=== PATIENT | female | born 1955 | race Hispanic/Latino ===

== ENCOUNTER → 2022-03-14 07:52 | Outpatient (CLI) | payer OTHER, SELFPAY ==
--- NOTE | 2022-03-14 07:54 | DI.NM.S_ITS ---
PROCEDURE: [place] BONE SCAN WHOLE BODY RADIOPHARMACEUTICAL: 19.8 mCi Tc-99m MDP IV. INDICATIONS: Secondary malignant neoplasm of bone TECHNIQUE: Delayed whole-body scintigrams were obtained approximately 3-4 hours after intravenous injection of radiotracer. Anterior and posterior views were acquired from vertex to feet. Additional left and right oblique views of the thorax were obtained. COMPARISON: None. FINDINGS: Linear increased radiotracer uptake involving the posterior posterior lateral left 7th rib highly suspicious for metastatic disease. No additional areas of suspicious radiotracer uptake. No areas of photopenia identified in the osseous skeleton. Radiotracer uptake identified in the shoulders bilaterally, the knees bilaterally, ankles bilaterally mid feet compatible with osteoarthritis. No abnormal soft tissue uptake. Activity in the kidneys is normal and symmetric. IMPRESSION: Probable osseous metastatic disease involving the left 7th rib. Dictated by: Lucy Crain MD, PhD on 03/14/2022 at 11:53 Approved by: Lucy Crain MD, PhD on 03/14/2022 at 11:57
== END ==
PROVIDERS: PCP Internal Medicine; Referring Provider Internal Medicine Medical Oncology; Visit Provider Internal Medicine Medical Oncology
DX: C79.51 Secondary malignant neoplasm of bone (principal); C50.811 Malignant neoplasm of overlapping sites of right female breast; Z17.0 Estrogen receptor positive status [ER+]
CPT/HCPCS: 78306; A9503

== ENCOUNTER → 2022-05-19 09:46 | Outpatient (CLI) | payer OTHER, SELFPAY | PROVIDERS: PCP Internal Medicine; Referring Provider Internal Medicine Medical Oncology; Visit Provider Internal Medicine Medical Oncology | DX: C79.51 Secondary malignant neoplasm of bone (principal); C80.1 Malignant (primary) neoplasm, unspecified; Z53.20 Procedure and treatment not carried out because of patient's decision for unspecified reasons ==

== ENCOUNTER → 2022-07-25 12:44 | Outpatient (CLI) | payer OTHER, SELFPAY ==
--- NOTE | 2022-07-25 12:46 | DI.CT.S_ITS ---
PROCEDURE: CT CHEST ABD PEL W CON INDICATIONS: Mastodynia TECHNIQUE: After the administration of oral and intravenous contrast, axial sections acquired from the supraclavicular neck to the pubic symphysis. Coronal and sagittal reformats were performed. For radiation dose reduction, the following was used: automated exposure control, adjustment of mA and/or kV according to patient size. COMPARISON:[place], [place], [place] BONE SCAN WHOLE BODY, 03/14/2022, 10:58. FINDINGS: Image quality: Excellent. CHEST: Lower Neck: No enlarged lymph nodes. Thyroid: Within normal limits. Axillae: No enlarged lymph nodes. Chest Wall: There are postsurgical changes in the left breast and left axilla. Lungs and Airways: No consolidation or suspicious nodules. Pleura: No pneumothorax or pleural effusions. Heart: Heart size is normal. No pericardial effusion. Mild coronary artery calcification. Thoracic Vessels: The aorta and pulmonary arteries demonstrate normal size. Mediastinum and Patsy: No enlarged lymph nodes. Esophagus: No wall thickening. Small hiatal hernia. ABDOMEN: Liver: There is a 3.6 x 3.9 cm cyst in segment 2. A tiny 0.4 cm hepatic hypodensity in segment 4 is indeterminate, but also likely a cyst. Mild hepatic steatosis. Gallbladder: Unremarkable. Biliary ducts: Unremarkable. Pancreas: Unremarkable. Spleen: Unremarkable. Adrenal Glands: Unremarkable. Kidneys and Ureters: Normal in size and enhancement. There are a few non obstructive right renal calculi. Stomach and Bowel: Stomach, small bowel loops, and colon are unremarkable. Peritoneum: No abnormal intraperitoneal fluid. No free air. Ventral Wall: No hernia. Abdominal Nodes: No retroperitoneal or mesenteric adenopathy by size criteria. Vessels: Aorta and inferior vena cava are normal in size. PELVIS: Pelvic Organs: Unremarkable. Bladder: Unremarkable. Pelvic Nodes: No enlarged lymph nodes. Miscellaneous: No inguinal hernias are seen. Bones: There are sclerotic bone lesions involving T6, T8, T9, L1, L3, L4, L5, S1, sternum, the medial head of the left clavicle, the left 2nd, 3rd, 6 and 7th ribs and the right 6th rib, consistent with osseous metastasis. There may be old healed left rib fractures. IMPRESSION: 1. There are multiple sclerotic osseous lesions as described, consistent with osseous metastases. 2. Postsurgical changes in the left breast and left axilla. No recurrent mass in left breast. A cause for breast pain is not identified. Recommend correlations with mammogram or breast ultrasound if clinically indicated. 3. No enlarged lymph nodes in thorax, abdomen or pelvis. 4. A large cyst in segment 2 of liver. A tiny hepatic hypodensity in segment 4 is also likely a cyst but too small to further characterize, therefore, considered indeterminate. 5. Mild hepatic steatosis. 6. Non obstructive right renal calculi. Dictated by: Augusto Lopez M.D. on 07/25/2022 at 18:30 Approved by: Augusto Lopez M.D. on 07/25/2022 at 18:43
== END ==
PROVIDERS: PCP Internal Medicine; Referring Provider Surgery; Visit Provider Surgery
DX: N64.4 Mastodynia (principal); K76.89 Other specified diseases of liver; K76.0 Fatty (change of) liver, not elsewhere classified; N20.0 Calculus of kidney; M89.9 Disorder of bone, unspecified
CPT/HCPCS: 71260; 74177; Q9967

== ENCOUNTER → 2022-09-01 09:18 | Outpatient (CLI) | payer OTHER, SELFPAY ==
[2022-09-01 11:21] LABS: COVID19 -Nasal RAPID Negative (Negative)
== END ==
PROVIDERS: PCP Internal Medicine; Visit Provider Surgery
DX: Z20.822 Contact with and (suspected) exposure to COVID-19 (principal); Z01.812 Encounter for preprocedural laboratory examination
CPT/HCPCS: 87635; C9803

== ENCOUNTER 2022-09-02 06:45 | Day surgery (SDC) | payer OTHER, SELFPAY ==
[2022-09-02] VITALS (17 sets, daily range): BP systolic 129–188; BP diastolic 71–116; PULSE 62–87; RESP 12–25; TEMP 35.7–36.3; O2SAT 95–99; BMI 29.9
--- NOTE | 2022-09-02 | PATH_ITS ---
[facility] Accession Number: [id number] No. of containers..03 Tissue . 01 Material submitted: . PART A: abdomen - LEFT TRAM FLAP PART B: breast - LEFT INFERIOR BREAST TISSUE. Modifiers: left, inferior PART C: breast - RIGHT BREAST. Modifiers: right . 01 Diagnosis: A. Left TRAM Flap, Excision/Mastectomy: Skin with focal scar and dermal exogenous black pigment. Fibroadipose tissue with focal fat necrosis. Skeletal muscle with degenerative change/necrosis. Breast duct and lobules are not identified. Negative for significant atypia or malignancy. . B. Left Inferior Breast Tissue, Excision: Benign fibroadipose tissue with focal fat necrosis. 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 No definitive breast duct and lobules identified. Negative for significant atypia or malignancy. . C. Right Breast Tissue, Mastectomy: Skin with nipple areolar complex within normal limits. Breast parenchyma with fibrocystic change including apocrine metaplasia, microcystic duct dilatation, and usual ductal hyperplasia. Negative for atypia, carcinoma in situ, and malignancy. MRV 09/11/2022 1715 Local . 01 Electronically signed: Raimundo Resendiz MD, Pathologist NPI- [id number] . 01 Gross description: . A. Received: In formalin, labeled with the patient's name and left TRAM flap. Specimen: Unoriented left reconstructed mastectomy specimen with no muscle tissue identified (photographs taken). Weight: 533 grams. Measurement: 16.8 x 13.9 x 6.4 cm. Skin Ellipse: Present, 15.2 x 3.9 cm with nipple (1.1 cm diameter) and areolar complex (4.1 x 3.5 cm) significant for a circular indent possibly consistent with scar surrounding the nipple complex. Wire: Absent. Margins: No orientation is provided. The ellipse of skin is located eccentrically. The largest area of exposed adipose above the ellipse is arbitrarily designated anterior superior and is inked blue. The opposite anterior surface is designated anterior inferior and is inked green. The posterior deep surface is inked black. Sliced: From presumed medial to lateral into twenty 4 mm slices. Lesion: No lesions identified. Other: The cut surfaces are yellow lobulated adipose tissue with strands of white fibrous tissue occupying approximately 10% of the cut surface. No lesions or biopsy sites are identified. Fixation time: Removed 09/02/2022. Time not provided. Cold ischemic time cannot be calculated. Total fixation time is less than 72 hours. Glass Blower Helper sections are submitted as follows: A1: Nipple and areolar complex. A2-A3: Rep, upper inner quadrant. A4-A5: Rep, lower inner quadrant. A6-A7: Rep, upper outer quadrant. A8-A9: Rep, lower outer quadrant. . An additional community relations representative section of nipple, areolar complex, and circumferential indented area is submitted in cassette A10. ([id number]) . B. Received: In formalin labeled with the patient's name and left inferior breast tissue. Specimen: Multiple unoriented fragments of yellow fibroadipose tissue with no skin identified. Weight: 89 grams. Measurement: 10.5 x 8.6 x 2.0 cm in aggregate. Skin Ellipse: Absent. Wire: Absent. Margins: Due to the unoriented fragmented nature of the specimen, margins cannot be identified. Sliced: Into 3 mm slices. Lesions: A well-circumscribed daley nodule is identified, possibly consistent with lymph node candidate measuring 0.8 cm in greatest dimension. No additional lesions are identified. Other: The cut surfaces are yellow lobulated fibroadipose tissue with white fibrous tissue occupying approximately 10% of the cut surface. No lesions or biopsy sites are identified. Fixation time: Removed 09/02/2022. Time not provided. Cold ischemic time cannot be calculated. Total fixation time is less than 72 hours. Glass Blower Helper sections are submitted as follows: B1: Bisected lymph node candidate. B2-B5: Glass Blower Helper sections. Photographs taken. . C. Received: In formalin, labeled with the patient's name and right breast. Specimen: Unoriented right mastectomy specimen (photographs taken) with detached additional fragment of yellow fibroadipose tissue. Mastectomy: Weight: 355 grams. Measurement: 13.5 x 10.8 x 5.7 cm. Skin Ellipse: Present, 10.1 x 3.3 cm with nipple (0.9 cm diameter) and areolar complex (2.8 x 2.5 cm). Wire: Absent. Margins: No orientation provided. The ellipse of skin is located eccentrically. The largest area of exposed adipose above the ellipse is arbitrarily designated anterior superior and is inked blue. The opposite anterior surface is designated anterior inferior and is inked green. The posterior deep surface is inked black. Sliced: From presumed lateral to medial into seventeen 4 mm slices. Lesions: No lesions identified. Other: The cut surfaces are yellow lobulated fibroadipose tissue with dense fibrous tissue occupying approximately 20% of the cut surface. No lesions or biopsy sites are identified. Additional adipose fragment: Weight: 33 grams. Measurement: 18.8 x 5.2 x 1.6 cm. Skin Ellipse: Absent. Wire: Absent. Margins: No orientation provided. Margins cannot be identified. Sliced: Into 3 mm slices. Lesions: No lesions identified. Other: The cut surfaces are yellow lobulated fibroadipose tissue with white fibrous tissue occupying less than 10% of the cut surface. No lesions or biopsy sites are identified. Fixation time: Removed 09/02/2022. Time not provided. Cold ischemic time cannot be calculated. Total fixation time is less than 72 hours. Glass Blower Helper sections are submitted as follows: C1: Central nipple. C2-C3: Rep, upper outer quadrant. C4-C5: Rep, lower outer quadrant. C6-C7: Rep, upper inner quadrant. C8-C9: Rep, lower inner quadrant. C10-C11: Rep, additional fragment. ([id number]) /MRV 09/09/2022 0942 Local . 01 Pathologist provided ICD-10: N64.4 . 01 CPT . 417896, 099858, 108497 Specimen Comment: A courtesy copy of this report has been sent to [phone] Performed at: 01 [facility] [address] [place] [address], [place], [place] [id number] MD Kush Light MD Phone: [phone]
[2022-09-02] MEDS: LACTATED RINGERS 1,000 ML 42 ML IV (07:33)
--- NOTE | 2022-09-02 07:35 | SUR.OPER ---
Supine on padded OR bed, head on pillow, arms secured on padded arm boards at <90 degrees abduction, legs uncrossed, safety belt at thigh, tape over blanket over lower legs.
[2022-09-02] MEDS: SCOPOLAMINE 1 PATCH TOP (07:54)
--- NOTE | 2022-09-02 08:04 | PM.PREOP ---
Pre-operative Note COVID-19 COVID-19 status: Negative Result date/Date tested (Pos, Neg/Pending): 09/01/22 Interval Note History & Physical reviewed/Exam performed by Physician: Yes Changes to H&P: No ASA Class (for procedural sedation): II
[2022-09-02] MEDS: CEFAZOLIN 2 GM/100 ML PREMIX 100 ML IV (08:15)
[2022-09-02] MEDS: LIDOCAINE 1% 20 ML INJ (08:35)
[2022-09-02] MEDS: EPINEPHrine 1 MG/ML 0.15 MG IM (08:36)
[2022-09-02] MEDS: BUPIVACAINE 0.5% (PF) VIAL 30 ML INJ (08:37)
[2022-09-02] MEDS: SODIUM CHLORIDE 0.9% 1,000 ML 84 ML IV (09:09)
--- NOTE | 2022-09-02 11:18 | PM.OP.1 ---
Operative Date/Time/Diagnoses Date of procedure: 09/02/22 Time of procedure: 11:19 Pre-op diagnosis: Bilateral mastodynia Post-op diagnosis: same Procedure & Clinicians Procedure: Bilateral mastectomy Same procedure as scheduled: Yes Surgeon: Lazaro Erickson Anesthesia Type: General Operative Notes Procedure in detail: Preoperative antibiotics were given. The patient was brought to the operating room, placed on the table in the supine position and general anesthesia was induced via LMA. The arms were abducted on arm boards. Bilateral breasts and axilla were prepped and draped in the usual fashion. A time-out was performed. We started with the left breast. We made an elliptical skin incision encompassing the left areola and curving towards the axilla laterally. We used cautery to enter the plane between the breast tissue and reconstructed left breast. We developed the superior flap first. We carried the dissection to the superior aspect of the breast tissue and when we saw pectoralis muscle we started to turn and lift the breast off the pectoral fascia. We then created an inferior flap and dissected the breast tissue down to the inframammary fold. We carried the dissection laterally to the edge of the latissimus muscle. We then removed the breast tissue from the field. Interestingly no muscle flap was visualized in the specimen. Finally, we irrigated the wound cavity with a liter of warm saline. We checked for hemostasis and addressed a few small bleeders with cautery. We injected additional local into the muscle and fascia. We then placed a 19 round Rashaad drain into the field and secured it to the skin with a 2-0 nylon stitch. We then closed the incision in layers using interrupted 3-0 Vicryl dermal sutures followed by running 4-0 Monocryl subcuticular stitch. Next we moved onto the right breast. We made an elliptical skin incision encompassing the right areola and curving towards the axilla laterally. We used cautery to enter the plane between the breast tissue in the subcutaneous adipose tissue. We developed the superior flap first. We carried the dissection to the superior aspect of the breast tissue and when we saw pectoralis muscle we started to turn and lift the breast off the pectoral fascia. Her breast tissue did not extend to the clavicle due to her age in laxity. We then created an inferior flap and dissected the breast tissue down to the inframammary fold. We carried the dissection laterally to the edge of the latissimus muscle. We then removed the breast tissue from the field. Finally, we irrigated the wound cavity with 2 L of saline. We checked for hemostasis and addressed a few small bleeders with cautery. We injected additional local into the muscle and fascia. We then placed 2 drains; the lateral drain went into the axilla and the more medial drain stayed over the pectoral muscle. Drains were secured to the skin with a 2-0 nylon stitch. We then closed the incision in layers using interrupted 3-0 Vicryl dermal sutures followed by running 4-0 Monocryl subcuticular stitch. Steri-Strips and gauze were applied followed by binder. The patient was awakened and brought to recovery room. EBL: 40 mL Post-operative Condition: stable Disposition: PACU
[2022-09-02] MEDS: ONDANSETRON 4 MG/2 ML INJ IV (11:33)
[2022-09-02] MEDS: LACTATED RINGERS 1,000 ML 75 ML IV (13:20)
[2022-09-02] MEDS: LETROZOLE 2.5 MG TABLET PO (17:21)
[2022-09-02] MEDS: Palbociclib [Ibrance] 125 MG 125 EACH PO (18:00)
[2022-09-03 03:30] VITALS: BP 142/78; PULSE 69; RESP 17; TEMP 36.1; O2SAT 96
[2022-09-03] MEDS: ACETAMINOPHEN 325 MG TABLET 650 MG PO (03:43)
[2022-09-03 05:46] LABS: Add Manual Diff / Slide Review NO; Basophils Absolute Auto 0 /uL (0-100); Basophils Percent Auto 0.1 % (0-2); Eosinophils Absolute Auto 0 /uL (0-450); Hematocrit 30.4 % (36-46); Hemoglobin 10.6 g/dL (12.0-16.0); Lymphocytes Absolute Auto 700 /uL (1100-4500); Lymphocytes Percent Auto 14.9 % (25-40); Mean Corpuscular Hemoglobin 37.3 PG (26-34); Mean Corpuscular Volume 106.6 fL (80-100); Monocytes Absolute Auto 300 /uL (0-900); Monocytes Percent Auto 6.1 % (3-14); Neutrophils Absolute Auto 3600 /uL (1500-7000); Neutrophils Percent Auto 78.9 % (50-75); Platelet Count 164 X10^3/uL (150-400); Red Blood Cell Count 2.85 X10^6/uL (4.0-5.2); Red Cell Distribution Width 16.4 % (11.6-14.8); White Blood Cell Count 4.5 X10^3/uL (4.5-11.0)
[2022-09-03 08:20] VITALS: BP 140/70; PULSE 69; RESP 18; O2SAT 100
--- NOTE | 2022-09-03 11:52 | CM.DANOTE ---
DCP: Case received, EMR reviewed and met with patient. Introduced self and role. Was able to obtain information regarding patient's baseline activity status prior to surgery, as well as her current living situation. DCP assessment completed with information currently available. Patient is a 66 year old female who admitted yesterday morning to the care of the surgical team. PCP: Dr. Vera. Payer: confirmed: [facility]. Patient came to the hospital via private vehicle for a surgical procedure. Patient had a Bilateral Mostodynia. Met with patient in her room. She is pleasant, alert and oriented. She was sitting up in bed. Confirmed that she has been waiting a long time for this surgery, she is just so glad that her insurance is now covering this. Patient resides in [place] with her sister, Eliz Mora. She is independent at her baseline. She is originally from [place], the [facility], but has been here for about a year. She is expected to return to [place], will stay with daughter and grand kids, until she can get her own house. She was referred to another oncologist in that area from Dr. Edge. 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 She hopes to get a job when in [place], recently worked at a bank. She is so thank full to God that she was able to have this surgery, and can be here for her kids and grandchildren. He hopes that she can go home today, surgeon has not yet seen patient. P: DCP to continue to follow. Patient should be able to go home when deemed medically stable. Arti Chatman RN/[employer]ig[employer] Developer Discharge Planning/Care Management CM Discharge Assessment Start: 09/03/22 11:51 Freq: Status: Active Protocol: Document 09/03/22 11:51 (Rec: 09/03/22 11:52 [id number]) Discharge Planning Assessment Assigned Hydrologic Modeler Arti Chatman RN/[employer] Developer Advance Directives? No History Provided By Patient,Medical Record Prior Living Arrangements House Household Members family Type of transporation used prior to Drives own vehicle admit Independent with ADL's Yes Is patient alert and oriented? Yes Caregiver for Another No Barriers to Discharge No Discharge Plan Home Transportation Arrangement Family Referrals Initiated None needed Whiteboard Updated in Patient Room with Yes name and ext. # of Hydrologic Modeler Review Status In Process Next Review Type Continued Stay Review
--- NOTE | 2022-09-03 12:51 | P.DS_ITS ---
History of Present Illness History of Present Illness Date Patient Seen: 09/03/22 Time Patient Seen: 12:51 Chief complaint: OPB Narrative: Karla is doing well following her bilateral mastectomy yesterday and she would like to go home. She reports no pain. Discharge Providers Provider Discharge Date: 09/03/22 Primary care physician: Tom Vera MD Discharge provider: Lazaro Erickson MD Exam Vital Signs (past 8 hours): - 09/03/22 08:20 Pulse Rate 69 Respiratory Rate 18 Blood Pressure 140/70 Pulse Oximetry 100 Oxygen Flow Rate 0 Oxygen Delivery Method Room Air Oxygen Flow Rate 0 Objective Labs Result Diagrams: 09/03/22 05:30 Labs: Laboratory Results - last 24 hr 09/03/22 05:30 WBC 4.5 RBC 2.85 L Hgb 10.6 L Hct 30.4 L MCV 106.6 H MCH 37.3 H MCHC 35.0 RDW 16.4 H Plt Count 164 Neut % (Auto) 78.9 H Lymph % (Auto) 14.9 L Wheeler % (Auto) 6.1 Eos % (Auto) 0.0 L Baso % (Auto) 0.1 Neut # (Auto) 3600 Lymph # (Auto) 700 L Wheeler # (Auto) 300 Eos # (Auto) 0 Baso # (Auto) 0 PFSH Medical History (Updated 08/20/22 @ 13:54 by Vick Villeda MD) Atherosclerosis of aorta Chronic obstructive pulmonary disease, unspecified Hyperlipemia, mixed Hypertension Pain in left knee Vitamin D deficiency Social History household members: family Smoking Status: Never smoker alcohol intake: current Discharge Plan Discharge Plan Patient Disposition: Home Provider Discharge Comment: Record daily drain output from left and right drain. Come to [facility] office on Thursday at 3:30 p.m. Discharge orders & Medications Discharge Orders: Discharge (Order); Ordered 09/03/22 Ordered By: Lazaro Erickson Prescriptions: Continued Ibrance 125 mg Capsule 125 mg PO DAILY Qty: 21 3RF Rx Instructions: administer on days 1 through 21 of a 28-day treatment cycle telmisartan 80 mg Tablet 80 mg PO DAILY letrozole 2.5 mg Tablet 2.5 mg PO DAILY ascorbic acid (vitamin C) [Vitamin C] 500 mg Tablet 500 mg PO DAILY vitamin B complex Capsule 1 cap PO DAILY acetaminophen [Tylenol] 325 mg Tablet 650 mg PO Q4H PRN (Reason: Pain (Scale Score 4-6)) lorazepam [Ativan] 1 mg tablet 1 mg PO Q6HR PRN (Reason: Nausea) Qty: 30 0RF Rx Instructions: take 30 min prior to MRI for anxiety lorazepam 0.5 mg Tablet 0.5 mg PO DIRECTED PRN (Reason: Anxiety) Qty: 10 0RF Rx Instructions: take one tablet 30 minutes prior to procedure for anxiety, Follow up/Referrals: Lazaro Erickson MD [Physician] - Tom Vera MD [Primary Care Provider] - Visit Report/Discharge Packet Instructions: DI for Mastectomy, How to Use and Care for Your Keanu-Bueno Drain, How to Care for Your Surgical Drain, [facility]: Wound Care Discharge Data Primary Care Provider: Tom Vera Attending Provider: Lazaro Erickson Quality VTE Deep Vein Thrombosis/Pulmonary Embolism Present on Admission: No
--- NOTE | 2022-09-03 13:13 | PC.NURSE ---
Pt is dressed and ready for discharge home with Sister in Law. IV removed. Bilat drains intact and Pt was instructed on how to take care of her drains. Her meds were returned to her from the Pharmacy. A new chest binder was replaced with a larger size per request from Dr. Erickson. No new prescriptions written. Reviewed stroke education, showering, drain care, using ice for swelling, wearing binder as needed for comfort, and watching for s/s of infection. Pt has a follow up appointment made for at 3:30. 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
== END 2022-09-03 13:18 | disposition home or self-care (01) ==
LOC: OR 06:46 → AC 06:55
PROVIDERS: PCP Internal Medicine; Referring Provider Surgery; Visit Provider Surgery
PROC: 0HTV0ZZ Resection of Bilateral Breast, Open Approach (ICD-10-PCS; CPT 19303; principal; 2022-09-02 07:45)
DX: N64.1 Fat necrosis of breast (principal); J44.9 Chronic obstructive pulmonary disease, unspecified
CPT/HCPCS: 19303; 00404; 85025; J0171; J0690; J1100; J2405; J2704; J3010

== ENCOUNTER → 2022-12-01 15:39 | Outpatient (CLI) | payer OTHER, SELFPAY ==
[2022-09-08 13:32] VITALS: BMI 29.9
[2022-12-01 17:03] LABS: COVID19 -Nasal RAPID Negative (Negative)
== END ==
PROVIDERS: PCP Internal Medicine; Visit Provider Surgery
DX: Z20.822 Contact with and (suspected) exposure to COVID-19 (principal); Z01.812 Encounter for preprocedural laboratory examination
CPT/HCPCS: 87635; C9803

== ENCOUNTER 2022-12-02 08:08 | Day surgery (SDC) | payer OTHER, MEDICAID, SELFPAY ==
[2022-09-08 13:32] VITALS: BMI 29.9
[2022-11-27 08:29] VITALS: BMI 29.6
[2022-12-02] VITALS (7 sets, daily range): BP systolic 144–159; BP diastolic 74–94; PULSE 67–841; RESP 11–22; TEMP 36.1–37; O2SAT 98–100; BMI 29.7
--- NOTE | 2022-12-02 | PATH_ITS ---
[facility] Accession Number: [id number] No. of containers..02 Tissue . 01 Material submitted: . PART A: breast - RIGHT BREAST PART B: breast - LEFT BREAST . 01 Clinical history: . A: SUTURE LONG LATERAL, SHORT SUPERIOR B: LONG STITCH LATERAL, SHORT STITCH SUPERIOR . 01 Diagnosis: A. Right Breast, Revision Mastectomy: 1. Skin with fibrous scar and reactive/reparative changes, consistent with prior procedure(s). 2. Predominantly adipose tissue with rare benign ducts present, negative for significant atypia or malignancy. . . B. Left Breast, Revision Mastectomy: 1. Skin with fibrous scar and reactive/reparative changes, consistent with prior procedure(s). 2. Predominantly adipose tissue with with rare benign ducts present, negative for significant atypia or malignancy. [facility] 12/04/2022 1538 Local . 01 Electronically signed: . Linda Esparza MD, Pathologist NPI- [id number] . 01 Gross description: . A. Received: In formalin labeled with the patient's name, , and right breast tissue suture long lateral, short superior. Specimen: Oriented right partial mastectomy. Weight: 101 grams. Measurement: 6.4 cm anterior to posterior, 8.6 cm medial to lateral, and 3.4 cm superior to inferior. Skin Ellipse: Present measuring 15.7 x 3.4 cm. A linear defect runs the length of the specimen measuring 0.1 cm wide consistent with previous scar. Wire: Absent. Margins: Skin ellipse is marked with a short suture designating superior and a long suture designating lateral. The specimen is inked as follows: posterior black, medial blue, lateral green, superior orange, inferior red, anterior is covered with skin. Sliced: From lateral to medial into 27, 4 mm slices. Lesions: No lesions identified. No biopsy site is identified. Other: The cut surface is yellow to white soft fibroadipose tissue with fibrous tissue occupying less than 10% of the cut surface with no lesions identified. Fixation: The specimen is removed on 12/02/2022, time not provided, cold ischemic time cannot be calculated. Total fixation time is approximately 35 hours. Station Operator sections are submitted as follows: A1: Station Operator slice 1 green margin perpendicular. A2: Station Operator slice 4 to include skin, orange and red margins. A3: Station Operator slice 6 to include orange, red and black margins. A4: Station Operator slice 8 to include orange and red margins. A5: Station Operator slice 11 to include orange and skin margins. A6: Station Operator slice 14 to include orange, red, and skin margins. A7: Station Operator slice 17 to include black, red, and skin margins. A8: Entire slice 19 to include orange, red, black and skin margins. A9: Entire slice 24 to include orange, red, black and skin margins. A10: Station Operator slice 27 blue margin perpendicular. B. Received: In formalin labeled with the patient's name, , and left breast tissue long lateral stitch, short stitch superior. Specimen: Oriented partial left mastectomy. Weight: 96 grams. Measurement: 6.7 cm anterior to posterior, 14.7 cm medial to lateral, 2.6 cm superior to inferior. Skin Ellipse: Present measuring 15.8 x 2.2 cm with daley cutaneous surface significant for a full thickness indentation running from medial to lateral and measuring 0.1 cm in diameter consistent with previous scar. The remaining cutaneous surface is unremarkable. Wire: Absent. Margins: Oriented with a short suture in the cutaneous surface designating superior and a long suture in the cutaneous surface designating lateral. The specimen is inked as follows: posterior black, medial blue, lateral green, superior orange, inferior red, skin margin is anterior. Surface: Superior surface is significant for a pink, smooth area consistent with previous seroma cavity measuring 11.2 x 6.7 cm. Sliced: From medial to lateral into 20, 4 mm slices. Lesions: One fairly well-defined, yellow, firm lesion. Size : 0.3 x 0.3 x 0.2 cm. Slices: Slice 8. Biopsy Site: Absent. Distance to margins: 0.3 cm from the nearest orange margin (seroma cavity), 0.5 cm from the red margin, and greater than 1 cm from all remaining margins. Other: The remaining cut surfaces are yellow to white fibroadipose tissue with fibrous tissue occupying approximately 10% of the cut surface with no additional lesions or biopsy sites identified. Fixation Time: The specimen was removed on 12/02/2022, time in formalin not provided, cold ischemic time cannot be calculated, total fixation time is approximately 35 hours. Station Operator sections are submitted as follows: B1: Station Operator slice 1 blue margin perpendicular. B2: Station Operator slice 3 to include skin, orange and red margins. B3: Station Operator slice 5 to include red and black margins. B4: Station Operator slice 7 no lesion to include orange and red margins. B5: Station Operator slice 8 to include lesion. B6: Station Operator slice 9 no lesion to include orange and red margins. B7: Station Operator slice 13 to include orange and black margins. B8: Station Operator slice 15 to include orange, red and skin margins. B9: Station Operator slice 17 to include red and orange margins. B10: Station Operator slice 20 green margin perpendicular. ([id number]) /[facility] 12/04/2022 1538 Local . 01 Pathologist provided ICD-10: Z85.3 . 01 CPT . 502700, [id number] Specimen Comment: A courtesy copy of this report has been sent to [phone] Performed at: 01 [facility] [address] [place] [address], [place], [place] [id number] MD Kush Light MD Phone: [phone]
[2022-12-02] MEDS: LACTATED RINGERS 1,000 ML 42 ML IV ×2 (08:44→11:34)
--- NOTE | 2022-12-02 10:05 | PM.PREOP ---
Pre-operative Note COVID-19 COVID-19 status: Negative Result date/Date tested (Pos, Neg/Pending): 12/01/22 Interval Note History & Physical reviewed/Exam performed by Physician: Yes Changes to H&P: No ASA Class (for procedural sedation): II
[2022-12-02] MEDS: CEFAZOLIN 2 GM/100 ML PREMIX 100 ML IV (10:50)
[2022-12-02] MEDS: BUPIVACAINE 0.5% W/ EPI (PF) 30 ML VIAL INJ (11:13)
--- NOTE | 2022-12-02 11:19 | SUR.OPER ---
Supine on padded OR bed, head on pillow, arms secured on padded arm boards at <90 degrees abduction, legs uncrossed, safety belt at thigh, tape over blanket over lower legs.
--- NOTE | 2022-12-02 13:27 | P.OP_ITS ---
Operative Date/Time/Diagnoses Date of procedure: 12/02/22 Time of procedure: 13:27 Pre-op diagnosis: Breast cancer Post-op diagnosis: same Procedure & Clinicians Procedure: Revision of bilateral mastectomy Same procedure as scheduled: Yes Surgeon: Lazaro Erickson Anesthesia Type: General Operative Notes Procedure in detail: The patient was brought to the operating room, placed on the table in the supine position with the arms abducted and general anesthesia was induced via LMA. The chest wall was prepped both sides down to the latissimus dorsi. The patient was prepped and draped in normal fashion. A time-out was performed. We started on the right side. The right scar was resected taking additional subcutaneous tissue from the inferior portion and lateral portion of the wound. The specimen was marked with a short stitch superiorly and a long stitch later ally. We irrigated the wound cavity and made sure there was complete hemostasis. In order to get the incision to close without a dog-ear we had to create a 2 cm max's triangle at the lateral aspect of the incision. The incision was then closed using multiple interrupted 3-0 Vicryl dermal sutures and a running 4-0 Monocryl subcuticular closure. We then turned to the right side. We excised the right-sided scar taking more subcutaneous tissue from the inferior aspect. We did encounter an old seroma cavity which was partially resected but not entirely resected because the deep wall was opposed to pectoral muscle. The specimen was marked with a short stitch superiorly and a long stitch laterally. We irrigated the wound cavity and made sure there was complete hemostasis. We then closed the incision with multiple interrupted 3-0 Vicryl dermal sutures and a running 4 Monocryl subcuticular closure. EBL: 30 mL Specimen: right breast and left breast tissue Post-operative Condition: stable Disposition: PACU
[2022-12-02] MEDS: OXYCODONE IR 5 MG TABLET PO ×2 (13:35→14:17)
[2022-12-02] MEDS: ONDANSETRON 4 MG/2 ML INJ IV (13:35)
== END 2022-12-02 13:47 | disposition home or self-care (01) ==
PROVIDERS: PCP Internal Medicine; Referring Provider Surgery; Visit Provider Surgery
PROC: 0HTV0ZZ Resection of Bilateral Breast, Open Approach (ICD-10-PCS; CPT 19120; principal; 2022-12-02 09:45)
DX: L98.7 Excessive and redundant skin and subcutaneous tissue (principal); C50.919 Malignant neoplasm of unspecified site of unspecified female breast
CPT/HCPCS: 19120; C9803; J0690; J2405; J2704; J3010